=== PATIENT | male | born 1945 | race Caucasian/White ===

== ENCOUNTER 2019-05-17 06:00 | Day surgery (SDC) | payer OTHER ==
[~2019-05-17 06:00] MED LIST: ATORVASTATIN CA10 MG PO; CARVEDILOL6.25 MG PO; CIDAFLEX TABLE1 EACH PO; FERRITIN PO; FLECAINIDE ACE100 MG PO; PROTONIX40 MG PO; XARELTO15 MG PO
== END 2019-05-17 16:30 | disposition home or self-care (01) ==
LOC: CIR.AMB 06:00
DX: K64.8 Other hemorrhoids (principal); K64.4 Residual hemorrhoidal skin tags

== ENCOUNTER 2022-02-18 06:00 | Day surgery (SDC) | payer OTHER ==
[~2022-02-18] VITALS: Ht 180.3 cm; Wt 78.0 kg
[2022-02-18] MEDS ORDERED: PERCOCET 5-3251 EACH PO (09:31)
[2022-02-18] MEDS ORDERED: NEURONTIN600 M1 PO (09:32)
[2022-02-18] MEDS ORDERED: POLY119PG PO (09:32)
== END 2022-02-18 11:15 | disposition home or self-care (01) ==
LOC: CIR.AMB 06:00
PROVIDERS: ATTEND Surgery
DX: K40.90 Unilateral inguinal hernia, without obstruction or gangrene, not specified as recurrent (principal); Z20.822 Contact with and (suspected) exposure to COVID-19; I48.91 Unspecified atrial fibrillation; E78.00 Pure hypercholesterolemia, unspecified; Z79.01 Long term (current) use of anticoagulants
CPT/HCPCS: 49650; C1781